=== PATIENT | male | born 1975 | race Caucasian/White ===

== ENCOUNTER → 2017-11-27 | Outpatient (CLI) | payer BC ==
--- NOTE | 2017-11-27 14:21 | Diagnostic Imaging Report ---
PROCEDURE: MRI lumbar spine. INDICATION: Low back pain with bilateral leg pain x6 days, right leg is worse. No known injury. TECHNIQUE: Multiplanar and multisequence noncontrast magnetic resonance imagine was performed of the lumbar spine. CORRELATION STUDY: 05/28/2012. FINDINGS: There is normal alignment and curvature of the lumbar spine. Lumbar vertebral body heights overall are fairly well maintained. A few very small Schmorl's node deformities are present. No edema or geographic lesion. The conus appears unremarkable. L5-S1: Loss of disc space height. Asymmetric right paramedian disc protrusion is present. This results in asymmetric right ventrolateral exiting neuroforaminal stenosis. There is significant deviation upon the exiting right L5 nerve root. Area of disc herniation is approximately 9 x 4 mm in the axial plane. Left foramina is without significant stenosis. L4-L5: Mild disc desiccation. There is mild broad-based disc bulge. Minimal endplate osteophyte formation. Overall findings do result in bilateral foraminal narrowing. There does appear to be very slight abutment of the exiting nerve root. Spinal canal is without stenosis. L3-L4: Mild loss of disc space height. Very mild broad-based disc bulge. Very slight asymmetric foraminal narrowing, left greater than right. No definitive nerve impingement. Also, mild ligamentum hypertrophy with minimal trefoil-type spinal canal configuration. Spinal canal is without significant stenosis. L2-L3: Unremarkable. L1-L2: Unremarkable. The visualized portions of the abdominal aorta and kidneys are negative. No pathologically enlarged central retroperitoneal lymph nodes. IMPRESSION: 1. Right L5-S1 paramedian disc herniation with resultant right ventrolateral exiting neuroforaminal stenosis and some abutment and deviation of the exiting right L5 nerve root. 2. [id number] bilateral foraminal narrowing at the L3-L4 and L4-L5 levels. Dictated by: Dictated on workstation # [id number]
== END ==
LOC: RAD 13:02
PROVIDERS: ATTEND Internal Medicine
DX: M99.83 Other biomechanical lesions of lumbar region (principal)
CPT/HCPCS: 72148

== ENCOUNTER → 2020-02-01 | Outpatient (CLI) | payer BC ==
--- NOTE | 2020-02-01 10:14 | Diagnostic Imaging Report ---
INDICATION: Epigastric abdominal pain TECHNIQUE: Multiple grayscale sonographic images were obtained of the right upper quadrant of the abdomen. CORRELATION STUDY: 11/29/2011 FINDINGS: LIVER: There is slight increased echotexture within the visualized portions of the liver. There is normal, hepatopedal direction of flow within the main portal vein. Mildly enlarged, 19.8 cm. GALLBLADDER: No shadowing gallstones. Borderline gallbladder wall thickening at 3 mm. COMMON BILE DUCT: Not visualized, obscured by overlying bowel gas. Overt bile duct dilatation however does not appear to be suggested. PANCREAS: Obscured by overlying bowel gas. RIGHT KIDNEY: Measures 10.7 x 5.4 x 4.5 cm. No hydronephrosis. AORTA/IVC: Largely obscured. OTHER: A fairly limited examination owing to patient's reported body habitus as well as significant overlying bowel gas. IMPRESSION: 1. Mild hepatomegaly with mild hepatic steatosis. 2. No definitive shadowing gallstones. Borderline gallbladder wall thickening. Biliary tree cannot be definitively visualized. Overt bile duct dilatation however is not suggested. Dictated by: Dictated on workstation # [id number]
== END ==
LOC: RAD 08:29
PROVIDERS: ATTEND Internal Medicine
DX: K22.70 Barrett's esophagus without dysplasia (principal); K21.9 Gastro-esophageal reflux disease without esophagitis; K76.0 Fatty (change of) liver, not elsewhere classified
CPT/HCPCS: 76705